=== PATIENT | male | born 1950 | race Caucasian/White ===

== ENCOUNTER 2025-05-08 11:48 | Inpatient (IN) | payer OTHER ==
[2025-05-08 12:43] LABS: ABSOLUTE IMMATURE GRANULOCYTES 0.02 x10^3/uL (0.0-0.031); BASOPHILS # 0.06 x10^3/uL (0.01-0.08); EOSINOPHIL % 1.4 % (0.8-7.0); EOSINOPHILS # 0.13 x10^3/uL (0.04-0.54); MCHC 32.7 g/dl (32.3-36.5); MEAN CELL VOLUME 85.2 fl (79.0-92.2); MEAN PLT VOLUME 12.4 fl (9.4-12.4); MONOCYTE # 0.60 x10^3/uL (0.30-0.82); MONOCYTE % 6.6 % (5.3-12.2); RDW 14.9 % (12.2-16.6)
[2025-05-08] MEDS ORDERED: FUROSEMIDE 100 MG/10 ML INJECTABLE VIAL IVPB ONE (12:45)
[2025-05-08] MEDS ORDERED: FUROSEMIDE 40 MG/4 ML INJECTABLE VIAL ONE (12:48)
[2025-05-08] MEDS: FUROSEMIDE 40 MG/4 ML INJECTABLE VIAL IVPUSH ONE (12:52)
[2025-05-08 13:27] LABS: INR 2.95 (0.83-1.09); PROTHROMBIN TIME (PATIENT) 32.8 SEC (9.7-13.0)
[2025-05-08 13:58] LABS: ALK PHOS 82 U/L (45-117); CO2 22 mmol/L (21-32); CREATININE 1.4 mg/dl (0.6-1.3); GLUCOSE,RANDOM 130 mg/dl (74-106); SGOT/AST 24 U/L (15-37); SGPT/ALT 11 U/L (7-52); TOT PROT 7.7 g/dl (6.4-8.2)
[2025-05-08] MEDS: METOPROLOL TARTRATE 5 MG/5 ML VIAL IVPB ONE (16:01)
[2025-05-08 16:10] LABS: N-TERMINAL BNP 6945.3 pg/ml (5-450)
[2025-05-08 16:22] VITALS: BMI 32.7
[2025-05-08 16:52] LABS: HCV DIAGNOSTIC IN-HOUSE W/RFLX NON-REACTIVE (NONREACTIVE)
[2025-05-08 16:53] LABS: HIV INTERPRETATION NEGATIVE (NEGATIVE)
[2025-05-08 18:32] VITALS: RESP 20
[2025-05-08] MEDS: METOPROLOL TARTRATE 25 MG TABLET (FP) PO ONE (18:37)
[2025-05-08] MEDS: METOPROLOL TARTRATE 25 MG TABLET (FP) PO SCH (21:26)
[2025-05-08] MEDS: APIXABAN 5 MG TABLET PO SCH (21:26)
[2025-05-08] MEDS ORDERED: METOPROLOL TARTRATE 50 MG TABLET (FP) PO SCH (22:00)
[2025-05-09] MEDS: FUROSEMIDE 40 MG/4 ML INJECTABLE VIAL IVPUSH SCH (06:43)
[2025-05-09 08:03] LABS: ABSOLUTE IMMATURE GRANULOCYTES 0.02 x10^3/uL (0.0-0.031); BASOPHILS # 0.06 x10^3/uL (0.01-0.08); EOSINOPHIL % 2.7 % (0.8-7.0); EOSINOPHILS # 0.21 x10^3/uL (0.04-0.54); MCHC 32.6 g/dl (32.3-36.5); MEAN CELL VOLUME 85.3 fl (79.0-92.2); MEAN PLT VOLUME 11.8 fl (9.4-12.4); MONOCYTE # 0.73 x10^3/uL (0.30-0.82); MONOCYTE % 9.5 % (5.3-12.2); RDW 15.1 % (12.2-16.6)
[2025-05-09 08:15] LABS: INR 2.56 (0.83-1.09); PROTHROMBIN TIME (PATIENT) 28.4 SEC (9.7-13.0)
[2025-05-09 08:45] LABS: ALK PHOS 68.0 U/L (45-117); CO2 25.0 mmol/L (21-32); CREATININE 1.3 mg/dl (0.6-1.3); GLUCOSE,RANDOM 112.0 mg/dl (74-106); SGOT/AST 22.0 U/L (15-37); SGPT/ALT 10.0 U/L (7-52); TOT PROT 6.9 g/dl (6.4-8.2)
[2025-05-09] MEDS: MULTIVITAMINS (DAILY MVI) TABLET (FP) PO SCH (09:35)
[2025-05-09] MEDS: PANTOPRAZOLE 40 MG TABLET PO SCH (09:35)
[2025-05-09] MEDS ORDERED: VALSARTAN 40 MG TABLET PO SCH (10:00)
[2025-05-09 14:35] VITALS: BP 129/88; PULSE 110; TEMP 97.7
== END 2025-05-09 16:19 | disposition short-term general hospital (02) | DRG 291 ==
LOC: FER 11:48 → FM/S 14:15
PROVIDERS: ADMIT Internal Medicine; ATTEND Internal Medicine
DX: I13.0 Hypertensive heart and chronic kidney disease with heart failure and stage 1 through stage 4 chronic kidney disease, or unspecified chronic kidney disease (principal); I50.33 Acute on chronic diastolic (congestive) heart failure; R18.8 Other ascites; I48.0 Paroxysmal atrial fibrillation; N18.9 Chronic kidney disease, unspecified
CPT/HCPCS: 36415; 71045-TC-FY; 80053; 83735; 83880; 84100; 84484; 85025; 85610; 86803; 87389; 87635; 93005; 93970-TC; 97116-GP; 97161-GP; 99285-25